=== PATIENT | male | born 1995 | race Caucasian/White ===

== ENCOUNTER 2021-06-07 08:14 | Emergency (ER) | payer OTHER ==
[2021-06-07] MEDS ORDERED: NORCO 5-325 TA1 EACH PO (11:33)
[2021-06-07] MEDS ORDERED: NAPROXEN500 MG PO (11:33)
[2021-06-07] MEDS ORDERED: MUCINEX D TABL1 EACH PO (11:33)
[2021-06-07] MEDS ORDERED: AMOXICILLIN875 MG PO (11:33)
[2021-06-07] MEDS ORDERED: ONDANSETRON ODT4 MG PO (11:33)
== END 2021-06-07 11:50 | disposition home or self-care (01) ==
LOC: FER 08:14
DX: H66.002 Acute suppurative otitis media without spontaneous rupture of ear drum, left ear (principal)
CPT/HCPCS: 99282